=== PATIENT | female | born 1980 | race Caucasian/White ===

== ENCOUNTER 2016-09-26 05:38 | Inpatient (IN) | payer OTHER ==
[~2016-09-26] VITALS: Ht 160 cm; Wt 73.0 kg
[~2016-09-26 05:38] MED LIST: PRENTAB52 PO
[2016-09-26] MEDS ORDERED: BICITRA 30ML SOLN UDC PO ONE (06:00)
[2016-09-26] MEDS ORDERED: LR 1,000 ML IV SCH ×2 (06:00→09:30)
[2016-09-26 06:26] LABS: MEAN CORPUSCULAR HEMOGLOBIN 30.8 pg (27.0-33.0); MEAN CORPUSCULAR HGB CONC 33.1 g/dl (32.0-36.5); MEAN CORPUSCULAR VOLUME 93.2 fl (80.0-96.0)
[2016-09-26] MEDS ORDERED: ONDANSETRON 4MG/2ML VIAL (J2405) IV PRN ×3 (07:45→10:00)
[2016-09-26] MEDS ORDERED: METOCLOPRAMIDE INJ 10MG/2ML VIAL (J2765) IV PRN ×2 (07:45→09:30)
[2016-09-26] MEDS ORDERED: NALBUPHINE HCL 10 MG/ML AMP (J2300) IV PRN (07:45)
[2016-09-26] MEDS ORDERED: NALOXONE INJ 0.4 MG/1 ML VIAL (J2310) IV PRN ×2 (07:45)
[2016-09-26] MEDS ORDERED: OXYTOCIN INJ 10 UNITS/ML VIAL (J2590) As Ordered ONE (07:55)
[2016-09-26] MEDS ORDERED: PHENYLephrine HCL 500 MCG/5 ML (100MCG/ML) SYRINGE (J2370) As Ordered ONE (07:55)
[2016-09-26] MEDS ORDERED: MORPHINE PRES-FREE INJ 10 MG/10 ML VIAL (J2274) As Ordered ONE (07:55)
[2016-09-26] MEDS ORDERED: ONDANSETRON 4MG/2ML VIAL (J2405) As Ordered ONE (07:58)
[2016-09-26] MEDS ORDERED: ePHEDrine SULFATE 25 MG/5 ML(5MG/ML) SYRINGE As Ordered ONE (08:18)
[2016-09-26] MEDS ORDERED: KETOROLAC 60 MG/2 ML VIAL (J1885) As Ordered ONE (08:36)
[2016-09-26] MEDS ORDERED: METOCLOPRAMIDE INJ 10MG/2ML VIAL (J2765) As Ordered ONE (08:43)
[2016-09-26 08:52] LABS: HBSAG L&D NEGATIVE (NEGATIVE)
[2016-09-26] MEDS: PRENATAL VITAMIN TAB PO SCH (09:00)
[2016-09-26] MEDS ORDERED: MEPERIDINE INJ 25 MG/ML VIAL (J2175) IV PRN (09:30)
[2016-09-26] MEDS ORDERED: fentaNYL 100 MCG/2 ML INJECTION (J3010) IV PRN (09:30)
[2016-09-26] MEDS ORDERED: PERCOCET 5MG/325MG TAB PO PRN ×3 (09:30→10:00)
[2016-09-26] MEDS ORDERED: PROMETHAZINE 25 MG TAB PO PRN (10:00)
[2016-09-26] MEDS ORDERED: METHYLERGONOVINE MALEATE 0.2 MG/ML VIAL (J2210) IM PRN (10:00)
[2016-09-26] MEDS ORDERED: RHOGAM 300 MCG (1500 IU) INJ (J2790) IM SCH (10:00)
[2016-09-26] MEDS ORDERED: MEASLES,MUMPS,RUBELLA VACCINE INJ (MMR-II) (90707) SC SCH (10:00)
[2016-09-26 11:45] VITALS: BP 102/60
[2016-09-26 12:15] VITALS: BP 115/64
[2016-09-26 13:15] VITALS: BP 100/65
[2016-09-26 14:00] VITALS: BP 99/60
[2016-09-26] MEDS: KETOROLAC 30 MG/ML VIAL (J1885) IV SCH ×2 (16:17→21:07)
[2016-09-26] MEDS: LR 1,000 ML IV SCH (16:45)
[2016-09-26 18:00] VITALS: BP 108/55
[2016-09-26] MEDS: DOCUSATE SODIUM 100 MG CAP PO SCH (21:06)
[2016-09-26 22:12] VITALS: BP 119/76
[2016-09-26] MEDS ORDERED: CALCIUM CARBONATE 500 MG CHEW U/D PO PRN (23:30)
[2016-09-27] MEDS: LR 1,000 ML IV SCH (01:51)
[2016-09-27 02:02] VITALS: BP 120/66
[2016-09-27] MEDS: IBUPROFEN 800 MG TAB PO SCH ×3 (05:58→20:07)
[2016-09-27 06:20] VITALS: BP 105/64
[2016-09-27 06:53] LABS: MEAN CORPUSCULAR HEMOGLOBIN 31.4 pg (27.0-33.0); MEAN CORPUSCULAR HGB CONC 33.5 g/dl (32.0-36.5); MEAN CORPUSCULAR VOLUME 93.7 fl (80.0-96.0); RED CELL DISTRIBUTION WIDTH 13.9 % (11.5-14.5); WHITE BLOOD COUNT 12.4 K/mm3 (4.0-10.0)
[2016-09-27] MEDS: PRENATAL VITAMIN TAB PO SCH (08:03)
[2016-09-27] MEDS: DOCUSATE SODIUM 100 MG CAP PO SCH ×2 (08:03→20:06)
--- NOTE | 2016-09-27 08:28 | RO ---
DATE OF PROCEDURE: 09/26/2016 PREOPERATIVE DIAGNOSIS: History of prior low transverse section to undesired fertility. POSTOPERATIVE DIAGNOSIS: History of prior low transverse section to undesired fertility, delivered. PROCEDURE PERFORMED: Repeat low transverse section and bilateral tubal ligation with Filshie clips. SURGEON: Michaelle Cherry MD QUANTITATIVE MANAGER: Shannon Falcon. ANESTHESIA: Spinal. ESTIMATED BLOOD LOSS: 700 mL. FLUIDS: 24 mL lactated Ringer's. URINE OUTPUT: 50 mL. CONDITION: Stable. COMPLICATIONS: None. SPECIMEN: None. ANTIBIOTICS: Ancef 2 grams IV times one prior to skin incision. INDICATION: The patient is a 36-year-old G2, P1 who had a history of prior low transverse section and desired no further childbearing. She was counseled and consented for the above procedure. FINDINGS: Normal uterus, tubes and ovaries bilaterally. Viable male . 9 and 9. Weight 8 pounds 1 ounce, 3656 grams. OPERATIVE PROCEDURE: The risks, benefits, indications and alternatives of the procedure were reviewed with the patient. Informed consent. The patient was taken to the operating room where spinal anesthesia was placed without difficulty. She was then prepped and draped in normal sterile fashion in the dorsal supine position with a leftward tilt. A Pfannenstiel skin incision was then made with the scalpel and carried through to the underlying layer of fascia. Fascia was then incised in the midline and the incision was extended laterally with Blakely scissors. Superior aspect of the incision was grasped with Carolin clamps, elevated and underlying rectus muscles dissected off aided with the scalpel. Attention was then turned to the inferior aspect of the incision which in a similar fashion was grasped, tented up with the Carolin clamps and the rectus muscles dissected off aided with Blakely scissors. Rectus muscles were then in midline. Peritoneum identified, tented up and entered digitally. The peritoneal incision was then extended horizontally with good visualization of bladder. The bladder blade was then inserted. The vesicouterine peritoneum was then identified, grasped with pickups and entered sharply with the Metzenbaum scissors. This incision was then extended laterally and the bladder flap created digitally. The bladder blade was then reinserted. Next the lower uterine segment was then incised in a transverse fashion with scalpel. The uterine incision was then extended manually. The amniotic sac was artificially ruptured productive of clear fluid. The bladder blade was then removed. The infants head delivered atraumatically in the OA position through the hysterotomy without difficulty. The nose and mouth were suctioned with a bulb syringe and the cord doubly clamped and cut. The was then handed off to the waiting sales route driver. The placenta was then removed spontaneously with gentle traction on the umbilical cord. The uterus was then exteriorized and cleared of all clots and debris. The uterine incision was then repaired with #0 Vicryl in a running locked fashion. The posterior cul-de-sac was then irrigated. Attention was then turned to the right fallopian tube which was followed up to its fimbriated end. Filshie clip was placed approximately 2 cm distal from the isthmus. The same procedure was performed on the left fallopian tube. Both areas were noted to be hemostatic. The uterus was returned to the abdomen and hysterotomy was again noted to be hemostatic. The pericolic gutters were irrigated and cleared of all clots and debris. The fascia was then reapproximated with #0 Vicryl in running fashion. The subcutaneous layer was then closed with #3-0 Vicryl in a running fashion. Skin was then closed with #3-0 Monocryl on a Matthew needle in subcuticular fashion. The incision was then dressed with Steri-Strips and a pressure dressing applied. At the completion of the case of the case, bimanual exam performed with good uterine tone and minimal vaginal bleeding. The patient tolerated the procedure well. Sponge, lap and needle counts were correct times three. The patient was taken to the recovery room in stable condition.
--- NOTE | 2016-09-27 09:29 | IPN ---
DATE: 09/27/2016 This lady and her requested circumcision of their male . After discussing risks and benefits of circumcision, medical and nonmedical indications, penile block and aftercare, both expressed understanding of penile block and aftercare, and the complication rate, signed and witnessed the consent form. We await the clearance by the nonprofit financial controller.
[2016-09-27 10:00] VITALS: BP 114/76
[2016-09-27 18:00] VITALS: BP 122/75
[2016-09-28] MEDS: IBUPROFEN 800 MG TAB PO SCH (05:08)
[2016-09-28 06:00] VITALS: BP 112/55
[2016-09-28] MEDS: DOCUSATE SODIUM 100 MG CAP PO SCH (08:03)
[2016-09-28] MEDS: PRENATAL VITAMIN TAB PO SCH (08:03)
[2016-09-28] MEDS ORDERED: COLA100C PO (12:32)
[2016-09-28] MEDS ORDERED: IBUP-1114 PO (12:32)
[2016-09-28] MEDS ORDERED: OXYC1TAB23 PO (12:32)
== END 2016-09-28 13:20 | disposition home or self-care (01) | DRG 766 ==
LOC: M LDI 05:38 → M OBS 11:30
PROVIDERS: ADMIT Obstetrics & Gynecology; ATTEND Obstetrics & Gynecology
PROC: 0UL70CZ Occlusion of Bilateral Fallopian Tubes with Extraluminal Device, Open Approach (ICD-10-PCS; 2016-09-26)
PROC: 10D00Z1 Extraction of Products of Conception, Low, Open Approach (ICD-10-PCS; principal; 2016-09-26 07:30)
DX: O34.211 Maternal care for low transverse scar from previous cesarean delivery (principal); Z37.0 Single live birth; Z3A.39 39 weeks gestation of pregnancy; Z30.2 Encounter for sterilization

== ENCOUNTER → 2018-01-23 | Outpatient (REF) | payer OTHER ==
[2018-01-24 14:15] LABS: CHLAMYDIA DNA AMPLIFICATION NEGATIVE (NEGATIVE); GC DNA AMPLIFICATION NEGATIVE (NEGATIVE)
== END ==
LOC: M LAB REF 10:53
DX: Z11.3 Encounter for screening for infections with a predominantly sexual mode of transmission (principal)

== ENCOUNTER → 2019-11-19 | Outpatient (CLI) | payer OTHER ==
[~2019-11-19] MED LIST changes: +COLA100C5 PO; +IBUP-1114 PO; +OXYC1TAB23 PO
--- NOTE | 2019-11-19 20:31 | REP ---
Clinical: Right lower quadrant pain. Technique: Transabdominal pelvic ultrasound followed by transvaginal examination for better evaluation of the endometrium and adnexa with color evaluation. Findings: Bladder is normal and measures approximately 10.6 x 8.9 x 9.9 cm. Heterogeneous retroverted uterus measures 8.1 x 4.4 x 6.5 cm and has a arcuate appearance. The central endometrial complex measures 10 mm thickness. No discrete focal uterine or endometrial abnormality identified. The bilateral ovaries are normal in vascularity without torsion. Right ovary measures 2.8 x 1.4 x 1.5 cm and appears normal. Left ovary measures 3.5 x 1.8 x 1.8 cm and includes 1.7 x 1.5 x 1.6 cm complex cyst likely physiologic. Small amount of free fluid noted in the pelvis likely related to menstrual cycle. Impression: 1. Arcuate contour to the uterus suggested without discrete focal uterine or endometrial abnormality. 2. Complex left ovarian cyst and small amount of pelvic fluid likely physiologic and related to menstrual cycle. No evidence for ovarian torsion. Electronically Signed by Sohan Novoa MD 11/19/2019 08:22 P
== END ==
LOC: M WHC 13:14
PROVIDERS: ATTEND Advanced Practice Midwife
DX: N83.202 Unspecified ovarian cyst, left side (principal); R10.31 Right lower quadrant pain

== ENCOUNTER 2020-02-18 11:24 | Emergency (ER) | payer OTHER ==
[~2020-02-18] VITALS: Ht 160 cm; Wt 66.3 kg
[2020-02-18] MEDS ORDERED: LOES1TAB7 (11:35)
[2020-02-18 12:09] LABS: BASO # 0.1 10^3/uL (0.0-0.2); BASO % 0.9 % (0.0-1.0); EOS # 0.1 10^3/uL (0.0-0.5); EOS % 2.3 % (0.0-3.0); HEMOGLOBIN 13.4 g/dl (12.0-15.5); LYMPH # 2.3 10^3/uL (1.5-5.0); LYMPH % 42.9 % (24.0-44.0); MEAN CORPUSCULAR HEMOGLOBIN 29.1 pg (27.0-33.0); MEAN CORPUSCULAR HGB CONC 32.7 g/dl (32.0-36.5); MEAN CORPUSCULAR VOLUME 88.9 fl (80.0-96.0); MONO # 0.4 10^3/uL (0.0-0.8); MONO % 7.3 % (0.0-5.0); NEUTROPHILS # 2.5 10^3/uL (1.5-8.5); NEUTROPHILS % 46.2 % (36.0-66.0); PLATELET COUNT, AUTOMATED 301 10^3/uL (150-450); RED BLOOD COUNT 4.61 10^6/uL (4.00-5.40); WHITE BLOOD COUNT 5.3 10^3/uL (4.0-10.0)
[2020-02-18 12:42] LABS: ALBUMIN 4.3 GM/DL (3.2-5.2); BILIRUBIN,DIRECT 0.1 MG/DL (0.0-0.2); BILIRUBIN,TOTAL 0.4 MG/DL (0.2-1.0); TOTAL PROTEIN 7.3 GM/DL (6.4-8.2)
[2020-02-18 13:22] VITALS: BP 131/69
--- NOTE | 2020-02-18 14:22 | REP ---
RIGHT UPPER QUADRANT SONOGRAPHY: HISTORY: Right upper quadrant pain. FINDINGS: Scanning through right upper quadrant of the abdomen demonstrates a normal sized thin-walled gallbladder without evidence of stone or polyp. Common bile duct is normal measuring 0.4 cm in greatest diameter. No liver mass lesion is seen. There are tiny echogenic punctate foci in the liver consistent with granulomatous calcifications. No biliary ductal dilation is seen. There is no evidence of ascites or right renal abnormality. The right kidney measures 10.7 x 5.8 x 4.3 cm. No abnormalities noted in the pancreas. IMPRESSION: No significant abnormality. Hepatic granulomatous calcifications seen. Otherwise negative. Electronically Signed by Asad Beckham MD 02/18/2020 03:01 P
== END 2020-02-18 13:22 | disposition home or self-care (01) ==
LOC: M ED 11:24
DX: S39.011A Strain of muscle, fascia and tendon of abdomen, initial encounter (principal); X58.XXXA Exposure to other specified factors, initial encounter; Y92.89 Other specified places as the place of occurrence of the external cause; Z79.3 Long term (current) use of hormonal contraceptives